=== PATIENT | female | born 1945 | race Caucasian/White ===

== ENCOUNTER → 2017-05-11 16:18 | Outpatient (CLI) | payer MEDICARE ==
[2017-05-11 20:25] LABS: ALT (SGPT) 17 U/L (10-68); CALC OSMOLALITY 282 mosm/kg (275-300); CALCIUM 8.1 mg/dL (8.5-10.1); CARBON DIOXIDE 27.6 mmol/L (21.0-32.0); CHLORIDE - SERUM 105 mmol/L (98-107); CHOL - HDL RATIO 3.1 ratio (2.3-4.1); CHOLESTEROL, TOTAL 175 mg/dL (0-200); CREATININE - SERUM 0.8 mg/dL (0.6-1.3); GLUCOSE 93 mg/dL (74-106); HDL CHOLESTEROL 57 mg/dL (32-96); LDL CHOLESTEROL 106 mg/dL (0-100); LDL-HDL RATIO 1.9 ratio (1.5-3.5); POTASSIUM - SERUM 4.2 mmol/L (3.5-5.1); SODIUM 141 mmol/L (136-145); TRIGLYCERIDE 63 mg/dL (30-200); UREA NITROGEN 17 mg/dL (7-18); eGFR NON AFRICAN AMERICAN 75 mL/min (90-120)
== END | disposition home or self-care (01) ==
LOC: D.LABREF 16:18
PROVIDERS: Internal Medicine Cardiovascular Disease
DX: I10 Essential (primary) hypertension (principal); E78.5 Hyperlipidemia, unspecified

== ENCOUNTER → 2019-05-19 09:35 | Outpatient (CLI) | payer MEDICARE ==
--- NOTE | 2019-05-26 11:25 | EC ---
PATIENT:NAREN KWOK DATE OF SERVICE: 05/19/19 SEX: F MEDICAL RECORD: [id number] DATE OF : [birth year] LOCATION:[facility] AGE OF PATIENT: 74 ADMISSION DATE: 05/19/19 REFERRING PHYSICIAN: INTERPRETING PHYSICIAN: PATRICK JUNE MD ECHOCARDIOGRAM REPORT ECHO CHARGES 4 ECHO COMPLETE Date: 05/19/19 CLINICAL DIAGNOSIS: HTN/ HX OF MR/TR ECHOCARDIOGRAPHIC MEASUREMENTS (adult normal given) AC root (d.<3.7cm) 3.4 cm LV Septum d (<1.2 cm> 1.5 cm Valve Excursion 1.7 cm LV Septum (systole) 1.9 cm Left Atria (s.<4.0cm> 4.2 cm LVPW d(<1.2cm) 1.7 cm RV (d.<2.3cm) 3.1 cm LVPW (sytole) 1.8 cm LV diastole(<5.6CM) 3.3 cm MV E-F(>70mm/sec) cm LV systole 1.8 cm LVOT Diameter 1.8 cm MV exc.(>10mm) 1.4 cm Est.ejection fraction (50-75%) % DOPPLER: LVIT cm/sec A 83.0 cm/sec E 68.0 cm/sec LA cm/sec RVSP 35 mmHg LVOT 107 cm/sec AOP1/2T m/s Asc. Ao 140 cm/sec RVOT 84 cm/sec RA cm/sec PA 129 cm/sec AV Gradient Peak 7.88 mmHg AV Mean 4.57 mmHg AV Area 1.9 cm MV Gradient Peak 3.70 mmHg MV Mean 1.62 mmHg MV Area cm COMMENTS: Spa Therapist: 2 STEVE CARBAJAL Alumni Relations Coordinator: 3 Dr. Woods TAPE# PACS Pericardial Effusion N DATE OF SERVICE: Adequate 2D, color flow imaging, spectral Doppler, and M-Mode LVH is present. LV internal dimension is normal. Wall motion is normal. EF is greater than or equal to 55%. Aortic valve is tricuspid. No evidence of stenosis by Doppler interrogation. Left atrium is mildly dilated at 4.2 cm. Mitral valve shows no prolapse. Trace MR. Right-sided chambers are grossly normal. Trace TR. ECHOCARDIOGRAM REPORT [id number] NAREN KWOK TRANSINT:[id number] Voice Confirmation ID: [id number] DOCUMENT ID: [id number] PATRICK JUNE MD at 1125 CC: [id number] DICTATION DATE: 05/19/19 1307 MIX CHEMIST: 05/19/19 1535 DEP CLI 05/19/19 [place] [id number] [place] [id number]
== END | disposition home or self-care (01) ==
LOC: D.HCCECHO 09:35
PROVIDERS: ATTEND Internal Medicine Interventional Cardiology
DX: I10 Essential (primary) hypertension (principal)

== ENCOUNTER 2019-06-17 12:08 | Outpatient (CLI) | payer MEDICARE ==
[~2019-06-17] VITALS: Ht 162.6 cm; Wt 71.4 kg
[2019-06-17 13:48] VITALS: Ht 162.6 cm; Wt 71.4 kg
--- NOTE | 2019-06-17 14:44 | NUR ---
1300 IV STARTED IN RIGHT AC 20G GOOD BLOOD RETURN AND FLUSHED WELL
--- NOTE | 2019-06-17 17:00 | NUR ---
1655 IV REMOVED AND INSTRUCTIONS GIVEN TO PT AND FAMILY.
== END 2019-06-17 17:05 | disposition home or self-care (01) ==
LOC: D.OPS 12:08
PROVIDERS: ATTEND Emergency Medicine
DX: D50.9 Iron deficiency anemia, unspecified (principal)

== ENCOUNTER 2020-10-11 20:35 | Emergency (ER) | payer MEDICARE ==
[~2020-10-11] VITALS: Ht 162.6 cm; Wt 71.8 kg
[2020-10-11 20:36] VITALS: Ht 162.6 cm; Wt 71.8 kg
[2020-10-11] MEDS ORDERED: PHENOBARBITAL32.4 MG PO (20:39)
[2020-10-11] MEDS ORDERED: LEVOTHYROXINE75 MCG PO (20:40)
[2020-10-11] MEDS ORDERED: CYMBALTA60 MG PO (20:40)
[2020-10-11] MEDS ORDERED: PEPCID AC20 MG PO (20:40)
[2020-10-11] MEDS ORDERED: ESTRADERM 0.10.1 MG TD (20:41)
[2020-10-11] MEDS ORDERED: ZOCOR40 MG PO (20:41)
[2020-10-11 21:00] LABS: BASOPHILS 0.6 % (0-2); HEMATOCRIT 44.6 % (36.0-48.0); HEMOGLOBIN 14.8 g/dL (12-16); LYMPHOCYTE ABS# 1.16 10x3/uL (1.18-3.74); LYMPHOCYTES 23.3 % (15-50); MCH 28.5 pg (26.0-34.0); MCHC 33.2 g/dL (31.0-37.0); MCV 85.9 fL (80.0-100.0); MEAN PLATELET VOLUME 8.9 fL (7.4-10.4); MONOCYTES 10.8 % (2-11); NEUTROPHILS 62.3 % (40-80); PLATELET COUNT 190 10x3/uL (130-400); RBC 5.19 10x6/uL (4.00-5.40); RDW 16.2 % (11.5-14.5)
[2020-10-11 21:09] LABS: CALC OSMOLALITY 281 mosm/kg (275-300); CALCIUM 9.5 mg/dL (8.5-10.1); CARBON DIOXIDE 24.7 mmol/L (21.0-32.0); CHLORIDE - SERUM 106 mmol/L (98-107); CREATININE - SERUM 1.1 mg/dL (0.6-1.3); GLUCOSE 138 mg/dL (74-106); POTASSIUM - SERUM 3.8 mmol/L (3.5-5.1); SODIUM 141 mmol/L (136-145); UREA NITROGEN 10 mg/dL (7-18); eGFR NON AFRICAN AMERICAN 51 mL/min (90-120)
[2020-10-11 21:23] LABS: ALBUMIN 3.5 g/dL (3.4-5.0); ALKALINE PHOSPHATASE 86 U/L (30-120); ALT (SGPT) 21 U/L (10-68); BILIRUBIN - TOTAL 0.23 mg/dL (0.2-1.3); MAGNESIUM - SERUM 2.1 mg/dL (1.8-2.4); PRO BNP 126 pg/mL (0-450); PROTEIN - SERUM 6.8 g/dL (6.4-8.2)
[2020-10-11 21:32] LABS: TROPONIN-I < 0.017 ng/mL (0.000-0.060)
[2020-10-11 22:59] VITALS: BP 130/81
== END 2020-10-11 22:59 | disposition home or self-care (01) ==
LOC: D.ER 20:35
PROVIDERS: Family Medicine
DX: R07.89 Other chest pain (principal); K21.9 Gastro-esophageal reflux disease without esophagitis; R11.0 Nausea